=== PATIENT | male | born 1985 | race African-American/Black ===

== ENCOUNTER 2023-04-22 21:56 | Emergency (ER) | payer OTHER ==
[~2023-04-22] VITALS: Ht 172.7 cm; Wt 137.0 kg
[2023-04-22 22:12] VITALS: O2SAT 100
[2023-04-22 23:58] LABS: BASOPHILS % 0.6 % (0.0-2.0); EOSINOPHILS % 2.6 % (0.0-5.0); HEMOGLOBIN. 13.7 g/dL (14.0-18.0); LYMPHOCYTES % 12.4 % (20.0-50.0); MEAN CORPUSCULAR HEMOGLOBIN 28.3 pg (28.0-32.0); MEAN CORPUSCULAR VOLUME 87.1 fL (80.0-94.0); MEAN PLATELET VOLUME 8.5 fl (7.4-10.4); NEUTROPHILS % 75.4 % (40.0-76.0); PLATELET 312 x1000/uL (130-400); RED BLOOD CELL COUNT 4.83 mill/uL (4.7-6.1); RED CELL DISTRIBUTION WIDTH 13.7 % (11.6-14.6)
[2023-04-23 00:12] LABS: CHLORIDE 105 mEq/L (98-107)
[2023-04-23 01:54] VITALS: BP 137/79; PULSE 100; RESP 16; TEMP 98
== END 2023-04-23 01:54 | disposition home or self-care (01) ==
LOC: ER 21:56
DX: R00.2 Palpitations (principal); R42 Dizziness and giddiness; I10 Essential (primary) hypertension
CPT/HCPCS: 36415; 71045; 80053; 84484; 85025; 85379; 99284